=== PATIENT | female | born 1955 | race Caucasian/White ===

== ENCOUNTER → 2020-01-01 14:19 | Outpatient (CLI) | payer OTHER, SELFPAY ==
--- NOTE | ~2020-01-01 | CT_ITS ---
EXAMINATION: CT brain wo con DATE: 01/01/2020 14:35 INDICATION: Status post fall. Facial pain and nausea. TECHNIQUE: Computed tomography (CT) of the head was performed without intravenous contrast. The dose- length product was 599.57 mGy-cm. Automated exposure control and iterative reconstruction technique w ere employed. COMPARISON: None FINDINGS: Brain parenchymal volume is normal for age. There is a small hyperdensity at the interhemis pheric fissure anteriorly, suspicious for small subdural hemorrhage. This measures approximately 5 x 2 mm greatest axial dimension. No ventriculomegaly or midline shift. Basilar cisterns are patent. No significant mass effect. There are scattered mild periventricular and subcortical white matter change s, most likely related to small vessel ischemic disease (microangiopathy). Paranasal sinuses and mast oids are pneumatized. No depressed skull fractures. IMPRESSION: 1. Small focal hyperdensity in the left frontal region along the interhemispheric fissure, suspicious for subdural hemorrhage. No significant mass effect. Reviewed, dictated and finalized at location A. IMPRESSION: 1. Small focal hyperdensity in the left frontal region along the interhemispher ic fissure, suspicious for subdural hemorrhage. No significant mass effect.
== END ==
PROVIDERS: PCP Registered Nurse; Visit Provider Registered Nurse
DX: H57.11 Ocular pain, right eye (principal); R51 Headache; R11.0 Nausea; W19.XXXA Unspecified fall, initial encounter; R93.89 Abnormal findings on diagnostic imaging of other specified body structures
CPT/HCPCS: 70450

== ENCOUNTER → 2020-01-02 12:49 | Outpatient (CLI) | payer OTHER, SELFPAY ==
--- NOTE | ~2020-01-02 | CT_ITS ---
EXAMINATION: CT cervical spine wo [facility] EXAM DATE: 01/02/2020 13:17 INDICATION: Recent fall, head injury. TECHNIQUE: Spiral CT of the cervical spine was performed without contrast. Axial images were reviewe d. Coronal and sagittal reformatted images were also reviewed. The dose-length product (DLP) for thi s examination was 246.95 mGy-cm. The exposure was tailored according to patient size (auto mA exposu re control), and iterative reconstruction (ASIR) was used as additional dose reduction technique. ere is no prior study for comparison. FINDINGS: Overall mild to moderate cervical arthropathy and disc disease, no significant central river l or neural foraminal stenosis. There is no evidence of acute cervical fracture. The odontoid proces s is intact. Pre-dens space is normal. Prevertebral soft tissue is normal. There are no soft tissu e abnormalities identified. There is no disc space widening or traumatic vertebral body subluxation suspected. A detailed level by level evaluation of spondylosis can be added as addendum if request ed. IMPRESSION: 1. No acute cervical fracture. 2. Mild to moderate cervical spondylosis. Reviewed, dictated and finalized at location A.
== END ==
PROVIDERS: PCP Registered Nurse; Visit Provider Registered Nurse
DX: R51 Headache (principal); R11.0 Nausea; M47.892 Other spondylosis, cervical region
CPT/HCPCS: 72125

== ENCOUNTER 2020-08-13 10:07 | Outpatient (CLI) | payer OTHER, SELFPAY ==
--- NOTE | ~2020-08-13 | MM_ITS ---
EXAMINATION: MM screening mark anthony BI w wyatt HISTORY: Screening mammogram TECHNIQUE: Craniocaudal and mediolateral oblique 3-D tomosynthesis images were obtained and synthetic 2-D images were generated. CAD analysis was submitted and interpreted. COMPARISON: 07/06/2019, 07/09/2018 bilateral digital screening mammogram examinations BREAST PARENCHYMAL COMPOSITION: The breasts are almost entirely fatty. FINDINGS: There is no evidence of suspicious mass, calcification, or architectural distortion to sugg est malignancy in either breast. There has been no suspicious interval change. IMPRESSION: 1. No mammographic evidence of malignancy. 2. Recommend routine screening mammography in one year. BI-RADS Category 1: Negative Reviewed, dictated and finalized at location A. 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
== END 2020-08-13 10:08 | disposition home or self-care (01) ==
LOC: ANHIMG 10:09
PROVIDERS: PCP Registered Nurse; Visit Provider Registered Nurse
DX: Z12.31 Encounter for screening mammogram for malignant neoplasm of breast (principal)
CPT/HCPCS: 77063; 77067

== ENCOUNTER 2020-10-03 09:53 | Outpatient (CLI) | payer OTHER, SELFPAY ==
--- NOTE | ~2020-10-03 | DEXA_ITS ---
Bone Density Report Name: Juliette Patterson Age: 64 Sex: Female Ethnicity: White Date of : 1955 Indication: osteopenia; height loss; prior fracture; hysterectomy; Referring Provider: Regla, Dian Study: Bone densitometry was performed. Exam Date: October 03, 2020 Accession number: [id number] Bone Density: Region BMD T-score Z-score Classification AP Spine (L1-L4) 0.901 -1.3 0.6 Osteopenia Femoral Neck (Left) 0.678 -1.5 0.1 Osteopenia Total Hip (Left) 0.828 -0.9 0.4 Normal Total Hip Bilateral Avg 0.841 -0.8 0.5 Normal Femoral Neck (Right) 0.671 -1.6 0.0 Osteopenia Total Hip (Right) 0.854 -0.7 0.6 Normal World Health Organization criteria for BMD impression classify patients as: Normal (T-score at or above -1.0), Osteopenia (T-score between -1.0 and -2.5), or Osteoporosis (T-score at or below -2.5). 10-year Fracture Risk(1): Major Osteoporotic Fracture 16% Hip Fracture 2.0% Reported Risk Factors: [place] (), Neck BMD=0.671, BMI=27.1, previous fracture (1) FRAX(R) Version 3.08. Fracture probability calculated for an untreated patient. Fracture probability may be lower if the patient has received treatment. Previous Exams: Region Exam Age BMD T-score BMD Change BMD Change Date g/cm2 vs Baseline vs Previous AP Spine(L1-L4) 10/03/2020 64 0.901 -1.3 -0.137(-13.2%) 0.016(1.9%)# 06/22/2018 62 0.884 -1.5 -0.154(-14.8%) 0.025(2.9%)* 06/02/2016 60 0.860 -1.7 -0.178(-17.2%) -0.008(-0.9%)# 04/17/2014 58 0.868 -1.6 -0.171(-16.4%) 0.011(1.3%) 03/25/2012 56 0.857 -1.7 -0.181(-17.5%) -0.068(-7.3%)# 01/16/2010 54 0.925 -1.1 -0.113(-10.9%) -0.008(-0.9%) 12/15/2007 52 0.933 -1.0 -0.105(-10.1%) 0.039(4.4%)* 11/27/2006 51 0.894 -1.4 -0.144(-13.9%) -0.144(-13.9%) 06/11/2003 47 1.038 -0.1 Total Hip(Left) 10/03/2020 64 0.828 -0.9 -0.111(-11.8%) 0.008(0.9%)# 06/22/2018 62 0.821 -1.0 -0.118(-12.6%) -0.037(-4.3%)* 06/02/2016 60 0.858 -0.7 -0.081(-8.6%)# 0.007(0.9%)# 04/17/2014 58 0.851 -0.7 -0.088(-9.4%)# -0.033(-3.8%)* 03/25/2012 56 0.884 -0.5 -0.055(-5.8%)# 0.022(2.6%)# 01/16/2010 54 0.862 -0.7 -0.077(-8.2%)* -0.034(-3.8%)* 12/15/2007 52 0.896 -0.4 -0.043(-4.6%)* 0.009(1.1%) 11/27/2006 51 0.887 -0.5 -0.052(-5.6%)* -0.052(-5.6%)* 06/11/2003 47 0.939 0.0 Total Hip(Right) 10/03/2020 64 0.854 -0.7 -0.133(-13.4%) 0.001(0.1%)# 06/22/2018 62 0.853 -0.7 -0.134(-13.5%) 0.004(0.5%) 06/02/2016 60 0.849 -0.8 -0.138(-14.0%) 0.051(6.3%)# 04/17/2014 58 0.798 -1.2 -0.189(-19.1%) -0.005(-0.6%)
== END 2020-10-03 09:54 | disposition home or self-care (01) ==
PROVIDERS: PCP Registered Nurse; Visit Provider Registered Nurse
DX: M85.88 Other specified disorders of bone density and structure, other site (principal); M85.852 Other specified disorders of bone density and structure, left thigh; M85.851 Other specified disorders of bone density and structure, right thigh
CPT/HCPCS: 77080

== ENCOUNTER 2021-11-27 09:06 | Outpatient (CLI) | payer OTHER, SELFPAY ==
--- NOTE | ~2021-11-27 | MM_ITS ---
EXAMINATION: MM screening mark anthony BI w wyatt HISTORY: Screening TECHNIQUE: Craniocaudal and mediolateral oblique 3-D tomosynthesis images were obtained and synthetic 2-D images were generated. CAD analysis was submitted and interpreted. COMPARISON: Comparison to multiple prior studies sequentially, with oldest reviewed study dated 05/03. BREAST PARENCHYMAL COMPOSITION: There are scattered areas of fibroglandular density. FINDINGS: There is no evidence of suspicious mass, calcification, or architectural distortion to sugg est malignancy in either breast. There has been no suspicious interval change. IMPRESSION: 1. No mammographic evidence of malignancy. 2. Recommend routine screening mammography in one year. BI-RADS Category 1: Negative Reviewed, dictated and finalized at location A. CHER
== END 2021-11-27 09:07 | disposition home or self-care (01) ==
LOC: ANHIMG 09:07
PROVIDERS: PCP Registered Nurse; Visit Provider Registered Nurse
DX: Z12.31 Encounter for screening mammogram for malignant neoplasm of breast (principal)
CPT/HCPCS: 77063; 77067

== ENCOUNTER 2022-12-01 08:47 | Outpatient (CLI) | payer OTHER, SELFPAY ==
--- NOTE | ~2022-12-01 | MM_ITS ---
EXAMINATION: MM screening mark anthony BI w wyatt HISTORY: Screening mammogram TECHNIQUE: Craniocaudal and mediolateral oblique 3-D tomosynthesis images were obtained and synthetic 2-D images were generated. CAD analysis was submitted and interpreted. COMPARISON: 11/27/2021, 08/09/2020, 07/06/2019 bilateral screening mammogram examinations BREAST PARENCHYMAL COMPOSITION: There are scattered areas of fibroglandular density. FINDINGS: There is no evidence of suspicious mass, calcification, or architectural distortion to sugg est malignancy in either breast. There has been no suspicious interval change. IMPRESSION: 1. No mammographic evidence of malignancy. 2. Recommend routine screening mammography in one year. BI-RADS Category 1: Negative Reviewed, dictated and finalized at location A.
--- NOTE | ~2022-12-01 | DEXA_ITS ---
Bone Density Report Name: LUKE KIM Age: 67 Sex: Female Ethnicity: White Date of : 1955 Indication: osteopenia; height loss; hysterectomy; postmenopausal Referring Provider: APURVA, RASHID Study: Bone densitometry was performed. Exam Date: December 01, 2022 Accession number: [id number] Bone Density: Region BMD T-score Z-score Classification AP Spine(L1-L4) 0.805 -2.2 -0.2 Osteopenia Femoral Neck (Left) 0.643 -1.9 -0.1 Osteopenia Total Hip (Left) 0.778 -1.3 0.1 Osteopenia Femoral Neck (Right) 0.649 -1.8 -0.1 Osteopenia Total Hip (Right) 0.800 -1.2 0.3 Osteopenia Total Hip Mean 0.789 -1.3 0.2 Osteopenia World Health Organization criteria for BMD impression classify patients as: Normal (T-score at or above -1.0), Osteopenia (T-score between -1.0 and -2.5), or Osteoporosis (T-score at or below -2.5). 10-year Fracture Risk(1): Major Osteoporotic Fracture 10% Hip Fracture 1.8% Reported Risk Factors: [place] (), Neck BMD=0.643, BMI=22.9 (1) FRAX(R) Version 3.08. Fracture probability calculated for an untreated patient. Fracture probability may be lower if the patient has received treatment. Previous Exams: Region Exam Age BMD T-score BMD Change BMD Change Date g/cm2 vs Baseline vs Previous AP Spine (L1-L4) 12/01/2022 67 0.805 -2.2 -0.052 (-6.1%) -0.096 (-10.7% 10/03/2020 64 0.901 -1.3 0.044 (5.2%)* 0.016 (1.9%)# 06/22/2018 62 0.884 -1.5 0.028 (3.2%)# 0.025 (2.9%)* 06/02/2016 60 0.860 -1.7 0.003 (0.3%)# 0.003 (0.3%)# 03/25/2012 56 0.857 -1.7 Total Hip(Left) 12/01/2022 67 0.778 -1.3 -0.106 (-11.9% -0.050 (-6.0%) 10/03/2020 64 0.828 -0.9 -0.056 (-6.3%) 0.008 (0.9%)# 06/22/2018 62 0.821 -1.0 -0.063 (-7.2%) -0.037 (-4.3%) 06/02/2016 60 0.858 -0.7 -0.026 (-2.9%) -0.026 (-2.9%) 03/25/2012 56 0.884 -0.5 Total Hip(Right) 12/01/2022 67 0.800 -1.2 -0.003 (-0.4%) -0.054 (-6.3%) 10/03/2020 64 0.854 -0.7 0.051 (6.4%)* 0.001 (0.1%)06/22/2018 62 0.853 -0.7 0.050 (6.2%)# 0.004 (0.5%) 06/02/2016 60 0.849 -0.8 0.046 (5.7%)# 0.046 (5.7%)# 03/25/2012 56 0.803 -1.1 *Denotes significance at 95% confidence level, LSC for AP Spine = 0.022 g/cm2, LSC for Total Hip = 0.027 g/cm2 # Denotes dissimilar scan types or analysis methods Clinical Information Provided by Patient: Has used the following medications: Vitamin D, Calcium Has the following medical conditions: Hysterectomy
== END 2022-12-01 08:48 | disposition home or self-care (01) ==
PROVIDERS: PCP Registered Nurse; Visit Provider Registered Nurse
DX: Z12.31 Encounter for screening mammogram for malignant neoplasm of breast (principal); Z78.0 Asymptomatic menopausal state; M85.89 Other specified disorders of bone density and structure, multiple sites
CPT/HCPCS: 77063; 77067; 77080

== ENCOUNTER 2023-12-03 08:58 | Outpatient (CLI) | payer OTHER, SELFPAY ==
--- NOTE | ~2023-12-03 | MM_ITS ---
EXAMINATION: MM screening mark anthony BI w wyatt HISTORY: Screening mammogram TECHNIQUE: Craniocaudal and mediolateral oblique 3-D tomosynthesis images were obtained and synthetic 2-D images were generated. CAD analysis was submitted and interpreted. COMPARISON: 12/01/2022, 11/27/2021 bilateral screening mammogram examinations BREAST PARENCHYMAL COMPOSITION: There are scattered areas of fibroglandular density. FINDINGS: There is no evidence of suspicious mass, calcification, or architectural distortion to sugg est malignancy in either breast. There has been no suspicious interval change. IMPRESSION: 1. No mammographic evidence of malignancy. 2. Recommend routine screening mammography in one year. BI-RADS Category 1: Negative Reviewed, dictated and finalized at location A.
== END 2023-12-03 08:59 | disposition home or self-care (01) ==
LOC: ANHIMG 09:00
PROVIDERS: PCP Registered Nurse; Visit Provider Registered Nurse
DX: Z12.31 Encounter for screening mammogram for malignant neoplasm of breast (principal)
CPT/HCPCS: 77063; 77067

== ENCOUNTER 2024-12-04 08:37 | Outpatient (CLI) | payer OTHER, SELFPAY ==
--- NOTE | ~2024-12-04 | MM_ITS ---
EXAMINATION: MM screening mark anthony BI w wyatt HISTORY: Screening TECHNIQUE: Craniocaudal and mediolateral oblique 3-D tomosynthesis images were obtained and synthetic 2-D images were generated. CAD analysis was submitted and interpreted. COMPARISON: Comparison to multiple prior studies sequentially, with oldest reviewed study dated 11/2017. BREAST PARENCHYMAL COMPOSITION: Not dense: There are scattered areas of fibroglandular density. FINDINGS: There is no evidence of suspicious mass, calcification, or architectural distortion to sugg est malignancy in either breast. There has been no suspicious interval change. IMPRESSION: 1. No mammographic evidence of malignancy. 2. Recommend routine screening mammography in one year. BI-RADS Category 1: Negative Reviewed, dictated and finalized at location B.
--- NOTE | ~2024-12-04 | DEXA_ITS ---
Bone Density Report Name: LUKE KIM Age: 69 Sex: Female Ethnicity: White Date of : 1955 Indication: osteopenia; height loss; hysterectomy; Referring Provider: APURVA, RASHID Study: Bone densitometry was performed. Exam Date: December 04, 2024 Accession number: [id number] Bone Density: Region BMD T-score Z-score Classification AP Spine(L1-L4) 0.812 -2.1 0.0 Osteopenia Femoral Neck (Left) 0.675 -1.6 0.3 Osteopenia Total Hip (Left) 0.778 -1.3 0.2 Osteopenia Femoral Neck (Right) 0.631 -2.0 -0.1 Osteopenia Total Hip (Right) 0.738 -1.7 -0.1 Osteopenia Total Hip Mean 0.758 -1.5 0.1 Osteopenia World Health Organization criteria for BMD impression classify patients as: Normal (T-score at or above -1.0), Osteopenia (T-score between -1.0 and -2.5), or Osteoporosis (T-score at or below -2.5). 10-year Fracture Risk(1): Major Osteoporotic Fracture 11% Hip Fracture 2.3% Reported Risk Factors: [place] (), Neck BMD=0.631, BMI=22.5 (1) FRAX(R) Version 3.08. Fracture probability calculated for an untreated patient. Fracture probability may be lower if the patient has received treatment. Previous Exams: Region Exam Age BMD T-score BMD Change BMD Change Date g/cm2 vs Baseline vs Previous AP Spine (L1-L4) 12/04/2024 69 0.812 -2.1 -0.045 (-5.2%) 0.007 (0.9%) 12/01/2022 67 0.805 -2.2 -0.052 (-6.1%) -0.096 (-10.7% 10/03/2020 64 0.901 -1.3 0.044 (5.2%)* 0.016 (1.9%)# 06/22/2018 62 0.884 -1.5 0.028 (3.2%)# 0.025 (2.9%)* 06/02/2016 60 0.860 -1.7 0.003 (0.3%)# 0.003 (0.3%)# 03/25/2012 56 0.857 -1.7 Total Hip(Left) 12/04/2024 69 0.778 -1.3 -0.106 (-12.0% 0.000 (0.0%) 12/01/2022 67 0.778 -1.3 -0.106 (-11.9% -0.050 (-6.0%) 10/03/2020 64 0.828 -0.9 -0.056 (-6.3%) 0.008 (0.9%)# 06/22/2018 62 0.821 -1.0 -0.063 (-7.2%) -0.037 (-4.3%) 06/02/2016 60 0.858 -0.7 -0.026 (-2.9%) -0.026 (-2.9%) 03/25/2012 56 0.884 -0.5 Total Hip(Right) 12/04/2024 69 0.738 -1.7 -0.066 (-8.2%) -0.063 (-7.8%) 12/01/2022 67 0.800 -1.2 -0.003 (-0.4%) -0.054 (-6.3%) 10/03/2020 64 0.854 -0.7 0.051 (6.4%)* 0.001 (0.1%)# 06/22/2018 62 0.853 -0.7 0.050 (6.2%)# 0.004 (0.5%) 06/02/2016 60 0.849 -0.8 0.046 (5.7%)# 0.046 (5.7%)# 03/25/2012 56 0.803 -1.1 *Denotes significance at 95% confidence level, LSC for AP Spine = 0.022 g/cm2, LSC for Total Hip = 0.027 g/cm2 # Denotes dissimilar scan types or analysis methods Clinical Information Provided by Patient: Has used the following medications: Vitamin D, Calcium Has the following medical conditions: Hysterectomy Patient maximum height was 68 Menopause Age: 48 No regular weight bearing exercise Drinks caffeinated beverages Onset of menses at age 13 Number of children 0 Impression: The patient has low bone mass, based on the Total Spine T-score. The patient has an estimated ten-year risk of hip fracture of 2.3% and an estimated ten-year risk of major fracture of 11%, based on the WHO FRAX algorithm. The BMD for the Total Hip(Right) decreased, changing by -7.8% since the last DXA exam. Discussion: BONE DENSITY IS LOW AT ONE OR MORE SKELETAL SITES. This patient's lowest T-score is low at one or more skeletal sites. It meets the World Health Organization's (WHO) criteria for ?low bone mass? (T-score between -1.0 and -2.5). The patient's 10-year risk of fracture as calculated by FRAX is less than the threshold where pharmacological therapy is recommended by the National Osteoporosis Foundation (NOF). However, all treatment decisions require clinical judgment and consideration of individual patient factors, including patient preferences, comorbidities, previous drug use, risk factors not captured in the FRAX model (e.g., frailty, falls, vitamin D deficiency, increased bone turnover, interval significant decline in bone density) and possible under or overestimation of fracture risk by FRAX. The patient should follow a healthful lifestyle (good nutrition with adequate calcium and vitamin D, and appropriate weight-bearing exercise). Follow-Up: Consider repeating this study in 2 years to reassess this patient's status, or sooner if there is some new clinical indication. Reported by: JUAN MANUEL on 12/04/2024 9:10:00 AM. Reviewed, dictated and finalized at location A.
--- OUTSIDE RECORDS SUMMARY | 2024-12-04 09:01 | XMS_ITS | Referral Summary ---
Author Organization [facility] Address [address] [place] [phone] Care Team Providers Care Brass [employer] Instruments Tube Bender Name Role Phone Dian Arauz Primary Care Provider + Christian Oliveros DO Unavailable Encounters Date Type Department Care Team Description 11/29/2024 11:35 AM CDT - 11/29/2024 11:59 PM CDT Hospital Encounter [facility] Diag Imaging [facility] [place] [address] Numbness in feet; Lumbar radiculopathy; Spinal stenosis of lumbar region without neurogenic claudication Discharge Disposition: Discharge to home or self care 11/29/2024 11:00 AM CDT Office Visit [facility] [address] [place] [address] [address], [address] [place] [address] Fernando Nieto PA Lumbar radiculopathy (Primary Dx); Numbness in feet; Spinal stenosis of lumbar region without neurogenic claudication from Last 3 Months Allergies No known active allergies Medications naproxen (ALEVE) 220 mg tablet Take 1 tablet (220 mg total) by mouth 2 (two) times a day with meals Active Active Problems Problem Noted Date Diagnosed Date Lumbar radiculopathy 11/29/2024 Social History Tobacco Use Types Packs/Day Years Used Date Smoking Tobacco: Never Assessed Comments Unknown Sex and Gender Information Value Date Recorded Sex Assigned at Not on file 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 Gender Identity Not on file Sexual Orientation Not on file Last Filed Vital Signs Vital Sign Reading Time Taken Comments Blood Pressure 176/83 11/29/2024 10:46 AM CDT Pulse 62 11/29/2024 10:46 AM CDT Temperature - - Respiratory Rate 18 11/29/2024 10:46 AM CDT Oxygen Saturation 98% 11/29/2024 10:46 AM CDT Inhaled Oxygen Concentration - - Weight 65.8 kg (145 lb) 11/29/2024 10:46 AM CDT Height 172.2 cm (5' 7.8 ) 11/29/2024 10:46 AM CD T Body Mass Index 22.18 11/29/2024 10:46 AM CDT Plan of Treatment Not on file Procedures Procedure Name Priority Date/Time Associated Diagnosis Comments XR LUMBAR SPINE AP LAT FLEX EX Schedule Routine, Read Routine (OP Routine) 11/29/2024 11:51 AM CDT Numbness in feet Lumbar radiculopathy Spinal stenosis of lumbar region without neurogenic claudication XR SCOLIOSIS AP LAT Schedule Routine, Read Routine (OP Routine) 11/29/2024 11:51 AM CDT Numbness in feet Lumbar radiculopathy Spinal stenosis of lumbar region without neurogenic claudication from Last 3 Months Results * XR Spine Lumbar Ap Lat Flex Ext min 4 Views (11/29/2024 11:51 AM CDT) Anatomical Region Laterality Modality L-spine N/A Computed Radiogr aphy 12/02/2024 10:4 5 PM CDT Narrative 12/02/2024 10:52 PM CDT EXAM DESCRIPTION: XR SPINE LUMBAR AP LAT FLEX EXT MIN 4 VIEWS REASON FOR STUDY: lumbar pain Pt sts: lower back pain X years, denies injury, denies surgery TECHNIQUE: Four views radiographic view(s) of the lumbar spine spine. COMPARISON: No comparison. FINDINGS: ALIGNMENT: There is anterolisthesis of L4 on L5 due to facet arthritis. Anterolisthesis is stable with flexion and neutral positioning and slightly reduced with extension. VERTEBRAE: Vertebral bodies of normal height. Mild hypertrophic endplate spurring at L3-4. DISCS: Disc space narrowing at L4-5 and L5-S1. SOFT TISSUES: Within normal limits. IMPRESSION: Degenerative anterolisthesis of L4 on L5 with mild reduction with extension. Disc degeneration at L4-5 and L5-S1. THIS IS AN ELECTRONICALLY VERIFIED FINAL REPORT 12/02/2024 10:52 PM - Electronically signed by Pedro CLARK T: Report ID: [id number] Reading Location: [id number] Procedure Note Maria D Friedman MD - 12/02/2024 EXAM DESCRIPTION: XR SPINE LUMBAR AP LAT FLEX EXT MIN 4 VIEWS REASON FOR STUDY: lumbar pain Pt sts: lower back pain X years, denies injury, denies surgery TECHNIQUE: Four views radiographic view(s) of the lumbar spine spine. COMPARISON: No comparison. FINDINGS: ALIGNMENT: There is anterolisthesis of L4 on L5 due to facet arthritis. Anterolisthesis is stable with flexion and neutral positioningand slightly reduced with extension. VERTEBRAE: Vertebral bodies of normal height. Mild hypertrophic endplate spurring at L3-4. DISCS: Disc space narrowing at L4-5 and L5-S1. SOFT TISSUES: Within normal limits. IMPRESSION: Degenerative anterolisthesis of L4 on L5 with mild reductionwith extension. Disc degeneration at L4-5 and L5-S1. THIS IS AN ELECTRONICALLY VERIFIED FINAL REPORT 12/02/2024 10:52 PM - Electronically signed by Pedro Friedman M.D. T: Report ID: [id number] Reading Location: [id number] us Fernando CORDERO IMG XR PROCEDURES Final Re sult * XR Scoliosis 2 or 3 Views (11/29/2024 11:51 AM CDT) Anatomical Region Laterality Modality Spine N/A Computed Radiogr aphy 12/02/2024 10:5 2 PM CDT Narrative 12/02/2024 11:11 PM CDT EXAM DESCRIPTION: XR SCOLIOSIS AP AND LATERAL REASON FOR STUDY: lumbar pain Pt sts: lower back pain X years, denies injury, denies surgery TECHNIQUE: Standing AP and lateral exam of the thoracolumbar spine. COMPARISON: No comparison. FINDINGS: Slight loss of height along the superior endplate of T12. Vertebral height otherwise maintained. There is a very slight levocurvature of the thoracic spine estimated roughly at 10 degrees with apex at T7. Lumbar lordosis is estimated at roughly 55 degrees. IMPRESSION: Slight loss of height along the superior endplate of T12. Mild levocurvature of the thoracic spine. No vertebral abnormality. THIS IS AN ELECTRONICALLY VERIFIED FINAL REPORT 12/02/2024 11:11 PM - Electronically signed by Pedro CLARK T: Report ID: [id number] Reading Location: [id number] Procedure Note Maria D Friedman MD - 12/02/2024 EXAM DESCRIPTION: XR SCOLIOSIS AP AND LATERAL REASON FOR STUDY: lumbar pain Pt sts: lower back pain X years, denies injury, denies surgery TECHNIQUE: Standing AP and lateral exam of the thoracolumbar spine. COMPARISON: No comparison. FINDINGS: Slight loss of height along the superior endplate of T12. Vertebralheight otherwise maintained. There is a very slight levocurvature of thethoracic spine estimated roughly at 10 degrees with apex at T7. Lumbar lordosis is estimated at roughly 55 degrees. IMPRESSION: Slight loss of height along the superior endplate of T12. Mild levocurvature of the thoracic spine. No vertebral abnormality. THIS IS AN ELECTRONICALLY VERIFIED FINAL REPORT 12/02/2024 11:11 PM - Electronically signed by Pedro CLARK T: Report ID: [id number] Reading Location: [id number] Fernando CORDERO IMG XR PROCEDURES Final Re sult from Last 3 Months Insurance [facility] Member Subscriber Plan / Payer (Ef fective 2018-Present) Name:Juliette Patterson Relation to Subscriber:Self Name:Juliette Patterson Payer ID:[id number] (NAIC) Type:MEDICARE RISK OTHER Address: [place] [id number] Care Teams Br[employer] Tube Bender Relationship Specialty Start Date End Date Dian Arauz PA [address] [place] [id number] PCP - General Nurse Practitioner 11/29/24 Christian Oliveros DO [address] [place] [phone] Referring Physician Family Medicine 11/29/24
--- OUTSIDE RECORDS SUMMARY | 2024-12-04 09:01 | XMS_ITS | Encounter Summary ---
Author Organization [facility] Address [address] [place] [id number] Care Team Providers Care Commodity Loan Clerk Name Role Phone Dian Arauz Primary Care Provider [phone] Encounter Details Date Type Department Care Team (Late Contact Info) Description 12/20/2020 ChargeBee Message Enc [facility] Family Medicine [facility] [address], [address] [place] [phone] Jomar, [facility] Provider RE:Schedule Appointment - Annual Physical Social History Tobacco Use Types Packs/Day Years Used Date Smoking Tobacco: Never Smokeless Tobacco: Never Alcohol Use Standard Drinks/Week Comments No 0 (1 standard drink = 0.6 oz pur e alcohol) AUDIT-C Answer Date Recorded Frequency of Alcohol Consumption Never 06/21/2019 Average Number of Drinks Not on file 019 Frequency of Binge Drinking Not on file 10/2018 PHQ-2 Answer Date Recorded PHQ-2 Score - If the patient scores above 3, please move on to questions 3-9 0 04/17/2020 Comments No Sex and Gender Information Value Date Recorded Sex Assigned at Female 10/24/2024 10:59 AM 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 Legal Sex Female 9:40 PM CDT Gender Identity Not on file Sexual Orientation Not on file documented as of this encounter Plan of Treatment Upcoming Encounters Date Type Department Care Team (Latest Contact Info) Description 12/08/2024 8:40 AM CDT Office Visit [facility] Family & Internal Medicine [address] [phone] Dian Arauz, RONNIE [address] [place] [address] 01/03/2025 9:40 AM CDT Hospital Encounter [facility] [place] [address] [id number] Roseline Ross MD [address] [facility] [address] [place] [address] 01/03/2025 9:40 AM CDT - 01/03/2025 10:00 AM CDT Surgery [facility] [place]ventional [place] [address] [id number] Roseline Ross MD [address] [facility] [address] [place] [address] INJECTION FACET JOINT L4-5 02/15/2025 10:20 AM CDT [facility] [address], [address] [place] [phone] Vickie Buck APRN [address] [facility] [address] [place] [address] 04/24/2025 10:00 AM CDT [facility] [address], [address] [place] [phone] Elroy Shaikh MD [address] [place] [address] Scheduled Procedures Name Priority Associated Diagnoses Date/Ti me INJECTION FACET JOINT Lumbar spondylosis 01/03/2025 9:40 AM CDT documented as of this encounter Visit Diagnoses Not on filedocumented in this encounter Additional Health Concerns Assessment Noted Time PHQ-9 Depression Total Score: 0 06/21/20 19 10:05 AM CDT documented as of this encounter Care Teams Commodity Loan Clerk Relationship Specialty Start Date End Date Dian Arauz APNP [address] [place] [id number] PCP - General NURSE PRACTITIONER 08/29/18 documented as of this encounter
--- OUTSIDE RECORDS SUMMARY | 2024-12-04 09:01 | XMS_ITS | Clinical Summary ---
Author Organization [facility] Address [address] [place] [address] Care Team Providers Care Machine Tracer Name Role Phone Dian Arauz Primary Care Provider [phone] Allergies Active Allergy Reactions Criticality Noted Date Comments Seasonal Eyes Water & Itch 12/27/2020 Medications Clobetasol Propionate Emulsion 0.05 % Foam Apply 1 Application topically as needed (eczema, in winter months). 2 08/03/20 18 Active fluticasone propionate 50 MCG/ACT nasal spray 1 spray by Nasal route daily as needed for Allergies (allergy season). Active multivitamin tablet Take 1 tablet by mouth daily. Active loratadine 10 MG tablet Take 1 tablet (10 mg total) by mouth daily. Active Naproxen Sodium 220 MG Cap Take by mouth as needed. Active ketoconazole (NIZORAL) 2 % shampoo WASH SCALP TWICE A WEEK 01/03/20 23 Active Vitamin B12 100 MCG tablet Take 0.5 tablets (50 mcg total) by mouth daily. Active magnesium oxide (MAG-OX) 250 MG tablet Take 1 tablet (250 mg total) by mouth 2 (two) times daily. Active diazePAM (VALIUM) 5 MG tablet TAKE 3 TABLETS BY MOUTH 1 HOUR PRIOR TO PROCEDURE, THEN TAKE 1 TABLET EVERY 6 HOURS NEEDED 10/19/19 25 Active albuterol sulfate HFA (PROAIR HFA) 108 (90 Base) MCG/ACT inhalerIndicat ions:COVID-19, Wheezing Inhale 2 puffs into the lungs every 6 (six) hours as needed for Wheezing. 18 g 1 11/28/19 25 Active triamcinolone acetonide (NASACORT) 55 MCG/ACT nasal inhaler 2 sprays by Each Nostril route daily. 025 Discontinu ed(Therapy completed) benzonatate (TESSALON) 100 MG capsuleIndicat ions:COVID-19 Take 1-2 capsules (100-200 mg total) by mouth 3 (three) times daily as needed for Cough. 40 capsule 11/23/19 25 025 albuterol sulfate HFA 108 (90 Base) MCG/ACT inhalerIndicat ions:COVID-19 Inhale 2 puffs into the lungs every 6 (six) hours as needed for Wheezing. 18 g 11/23/19 25 025 Discontinu ed(Insuran ce denial) nirmatrelvir & ritonavir 300/100 (PAXLOVID) 20 x 150 MG & 10 x 100MG tablet packIndication s:COVID-19 Take TWO nirmatrelvir 150 mg tablets along with ONE ritonavir 100 mg tablet, with all three tablets taken together, twice daily for 5 days. May take with or without food. Swallow tablets whole. Do not chew, break or crush. 30 each 11/23/19 25 025 Active Problems Problem Noted Date Diagnosed Date Spondylolisthesis of lumbar region 10/19/2024 Spinal stenosis of lumbar re gion without neurogenic claudication 10/19/2024 Facet hypertrophy of lumbar region 10/19/2024 Foraminal stenosis of lumbar region 10/19/2024 Degeneration of intervertebr al disc of lumbar region with discogenic back pain and lower extremity pain 10/19/2024 Lumbar radiculopathy 03/06/2021 Osteopenia 08/23/2020 History of skin cancer 06/24/2020 Low back pain potentially associated with radicu lopathy 06/24/2020 Diverticulosis 07/15/2019 Seasonal allergies 04/21/2018 Resolved Problems Problem Noted Date Diagnosed Date Resolved Date Cataract 11/02/2023 11/02/2023 Overview (11/02/2023): left eye Immunization due 06/24/2018 05/31/2020 Screening for lipoid disorders 04/21/2018 05/31/2020 Screening for endocrine, met abolic and immunity disorder 04/21/2018 05/31/2020 Encounters Date Type Department Care Team Description 12/01/2024 Telephone [facility] Family & Internal [address] [phone] Dian Arauz APNP Other 11/27/2024 Telephone [facility] Internal [address] [phone] Dian Arauz APNP Medication Problem 11/23/2024 Scan [employer] INFO SRVCS Scanned, [facility] 11/22/2024 10:40 AM COUNSELLORS Telemedicine [facility] Family Internal [address] [phone] Christian Oliveros, DO COVID-19 ( Pt prefers Virtual Link be sent to her email address. Pt tested positive for COVID yesterday. Her primary complaint is a very deep cough.) 11/22/2024 Travel 11/22/2024 MyChart Message Enc [facility] Family & Internal [address] [phone] Dian Arauz APNP COVID positive-chest cough 11/16/2024 MyChart Message [employer] [facility] Internal [address] [phone] Dian Arauz APNP Order for annual mamm and semi-annual bone density on December 04 11/01/2024 MyChart Message Enc [facility] Family & Internal [address] [phone] Dian Arauz APNP Referral to Dr. Christo Zhao neurosurgeon at [facility] 10/31/2024 Telephone [facility] - [facility] [address], [address] [place] [phone] Elroy Shaikh MD Results 10/25/2024 MyChart Message Enc [facility] Internal [address] [phone] Dian Arauz APNP Referral to [facility] for Dr. Sneha Kuhn, customer sales specialist on Nov 02 10/24/2024 11:04 AM COUNSELLORS - 10/24/2024 11:59 PM COUNSELLORS Hospital Encounter [facility] [place] [address] Elroy Shaikh MD Discharge Disposition: Home or Self Care (Routine Discharge) 10/24/2024 10:00 AM COUNSELLORS [facility] [address], [address] [place] [address] Elroy Shaikh MD New Patient (Emg follow up) 10/24/2024 Travel 10/19/2024 11:00 AM COUNSELLORS [facility] Visit [facility] [address], [address] [place] [phone] Vickie Buck APRN New Patient (Lumbar Spine ) 10/19/2024 MyChart Message Enc [facility] [place] [address] [id number] Jomar [facility] Provider [facility] 10/19/2024 Travel 10/18/2024 Scan [facility] INFO SRVCS Scanned, [facility] 10/17/2024 Scan [facility] INFO SRVCS Scanned, [facility] 09/22/2024 MyChart Message Enc [facility] & Internal [address] [phone] Dian Arauz APNP Referral to Dr. R[facility] to [facility] 09/22/2024 MyChart Message Enc [facility] Family & Internal [address] [phone] Dian Arauz, TREVONNP Referral to Dr. Shaikh to essence from Last 3 Months Immunizations Name Administration Dates Next Due Fluzone 6 Months+ Quad (0.5 mL Prefilled Syringe) 06/21/2019 Fluzone High Dose (IIV, triv alent, 0.5mL) 07/04/2024 Fluzone High Dose - >Age 65 (Prefilled Syringe) 06/24/2020 Influenza Adult (Generic) 06/17/2023,11/2021,06/23/2021,2017,07/12/2015,07/12/2014 Pneumococcal (Pneumovax 23) 06/24/2020 Pneumococcal (Prevnar 20) 08/03/2023 Tdap (Boostrix) 09/16/2014 Tdap (Generic) 06/29/2023,07/12/2014 Zoster (Zostavax) [address] Unt/0.65Ml 06/06/2014 Family History Medical History Relation Comments LOW BACK PAIN Brother LOW BACK PAIN AND SURGERY. Father Ovarian Cancer Mother No Known Problems Sister Relation Status Comments Brother Alive Father Mother Sister Alive Social History Tobacco Use Types Packs/Day Years Used Date Smoking Tobacco: Never Smokeless Tobacco: Never Tobacco Cessation:Counseling Given: No Alcohol Use Standard Drinks/Week Comments Not Currently 0 (1 standard drink = 0.6 oz pur e alcohol) AUDIT-C Answer Date Recorded Frequency of Alcohol Consumption Never 06/21/2019 Average Number of Drinks Not on file Frequency of Binge Drinking Not on file 10/2018 PHQ-2 Answer Date Recorded Patient Health Questionnaire-2 Score 0 10/19/2024 Education Answer Date Recorded What is the highest level of school you have completed or the highest degree you have received? 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 Not on file Not on file Last Filed Vital Signs Vital Sign Reading Time Taken Comments Blood Pressure 141/83 10/24/2024 10:25 AM COUNSELLORS Pulse 83 10/24/2024 9:39 AM COUNSELLORS Temperature 36.2 C (97.2 F) 10/24/2024 9:39 AM COUNSELLORS Respiratory Rate 16 08/01/2024 9:00 AM COUNSELLORS Oxygen Saturation 99% 10/24/2024 9:39 AM COUNSELLORS Inhaled Oxygen Concentration - - Weight 66.3 kg (146 lb 3.2 oz) 10/24/2024 9:39 A M COUNSELLORS Height 172.7 cm (5' 8 ) 10/24/2024 9:39 AM COUNSELLORS Body Mass Index 22.23 10/24/2024 9:39 AM COUNSELLORS Plan of Treatment Upcoming Encounters Date Type Department Care Team (Latest Contact Info) Description 12/08/2024 8:40 AM CDT Office Visit [facility] Medical [facility] [address] [phone] Dian Arauz APNP [address] [place] [address] 01/03/2025 9:40 AM CDT Hospital Encounter [facility] Interventional [place] [address] [id number] Roseline Ross MD Three [address] [address] 01/03/2025 9:40 AM CDT - 01/03/2025 10:00 AM CDT Surgery [facility] [place] [address] [id number] Roseline Ross MD Three [facility] [address] [place] [address] INJECTION FACET JOINT L4-5 02/15/2025 10:20 AM CDT [facility] [address], [address] [place] [phone] Vickie Bcuk APRN [address] [facility] [address] [place] [address] 04/24/2025 10:00 AM CDT Office [facility] [address], [address] [place] [phone] Elroy Shaikh MD [address] [place] [address] Scheduled Procedures Name Priority Associated Diagnoses Date/Ti me INJECTION FACET JOINT Lumbar spondylosis 01/03/2025 9:40 AM CDT Health Maintenance Due Date Last Done Comments Zoster Vaccines (2 of 3) 08/01/2014 06/06/2014 Annual Medicare Wellness Visit 2018 COVID-19 Vaccine ( season) 2024 07/11/2021, 11/26/2020, 10/23/2020 Mammogram Screening 12/02/2024 12/03/2023, 12/01/2022, 11/27/2021, Additional history exists Colorectal Cancer Screening Colonoscopy (10 Years) 05/01/2026 05/01/2016 RSV Immunization or 60+ Years (1 - 1-dose 75+ series) 2028 DTaP, Tdap and Td Vaccines (4 - Td or Tdap) 06/29/2033 06/29/2023, 09/16/2014, 07/12/2014 Dexa Scan (General) Completed 12/01/2022, 12/01/2022, 10/03/2020, Additional history exists Pneumococcal Vaccine: 65+ Years Completed 08/03/2023, 06/24/2020 Hepatitis C Completed 12/08/2023 Influenza Adult Completed 07/04/2024, 05/22, 06/22/2022, Additional history exists PHQ-2 (Physician [place]) Completed 10/19/2024 Meningococcal B Vaccine Aged Out No l onger eligible based on patient's age to complete this topic Meningococcal Vaccine Aged Out No silvino cas eligible based on patient's age to complete this topic RSV Immunizations Under 20 Months Aged Out No longer eligible based on patient's age to complete this topic Procedures Procedure Name Priority Date/Time Associated Diagnosis Comments PROTEIN, ELECTROPHORESIS Routine 10/24/2024 11:11 AM COUNSELLORS Neuropathy KAPPA LAMBDA FREE RATIO (QST) Routine 10/24/2024 11:11 AM COUNSELLORS Neuropathy VITAMIN B1 THIAMINE Routine 10/24/2024 1 1:11 AM COUNSELLORS Neuropathy VITAMIN B6 Routine 10/24/2024 11:11 AM COUNSELLORS Neuropathy VITAMIN B-12 Routine 10/24/2024 11:11 AM COUNSELLORS Neuropathy HEPATITIS C ANTIBODY W/RFX TO HCV RNA Routine 12/08/2023 8:33 AM CDT MAMMOGRAM GENERIC (SCAN ORDER) 12/03/2023 BONE DENSITY GENERIC (SCAN ORDER) 12/01/2022 COLONOSCOPY GENERIC (SCAN ORDER) 05/01/2016 from Last 3 Months or Most Recently Relevant to Health Maintenance Results * KAPPA LAMBDA FREE RATIO (QST) (10/24/2024 11:11 AM COUNSELLORS) KAPPA FREE LIGHT CHAIN 13.6 3.3 - 19.4 mg/L 10/26/2024 9:07 PM COUNSELLORS [facility] LAMBDA FREE LIGHT CHAIN 11.8 5.7 - 26.3 mg/L 10/26/2024 9:07 PM COUNSELLORS [facility] KAPPA/LAMBDA FREE 1.15 0.26 - 1.65 10/26/2024 9:07 PM COUNSELLORS [facility] LU[facility] DARBY Comment: Free kappa/lambda ratio in serum of normal individuals is 0.26-1.65. Excess production of free kappa or lambda chains can alter the ratio. Monoclonal free light chains are found in the serum of patients with multiple myeloma, Waldenstrom's macroglobulinemia, mu-heavy chain disease, primary amyloidosis, light chain deposition disease, monoclonal gammopathy of undetermined significance, and lymphoproliferative disorders. Measurement of free light chain concen- tration in serum is useful for diagnosis, prognosis, monitoring disease activity and following response to therapy of these disorders. Test Performed by [facility], [facility], [address] [place] [address] Telly Orantes M.D., Ph.D., Director of Laboratories , [place] [id number] 10/24/2024 11:1 1 AM COUNSELLORS Elroy Shaikh MD LABORATORY Final Res ult [facility] [address] [address], [place] [phone] * VITAMIN B-12 (10/24/2024 11:11 AM COUNSELLORS) VITAMIN B12 S/P/B 736 254 - 1,320 PG/ML 10/24/2024 3:41 PM COUNSELLORS [facility] 10/24/2024 11:1 1 AM COUNSELLORS Elroy Shaikh MD LABORATORY Final Res ult [facility] [address] [place] [address], [place] [phone] * (ABNORMAL) VITAMIN B6 (10/24/2024 11:11 AM COUNSELLORS) VITAMIN B6 S/P/B 85.9(H) 2.1 - 21.7 ng/mL 10/30/2024 12:59 PM COUNSELLORS [facility] Comment: Vitamin supplementation within 24 hours prior to blood draw may affect the accuracy of the results. This test was developed and its analytical performance characteristics have been determined by [facility] [place], [place]. It has not been cleared or approved by the U.S. Food and Drug Administration. This assay has been validated pursuant to the CLIA regulations and is used for clinical purposes. Test Performed by [facility], [address] [place] [address] Telly Orantes M.D., Ph.D., Director of Laboratories , CLIA [id number] 10/24/2024 11:1 1 AM COUNSELLORS Elroy Shaikh MD LABORATORY Final Res ult [employer] [address], * (ABNORMAL) VITAMIN B1 THIAMINE (10/24/2024 11:11 AM COUNSELLORS) [facility] VITAMIN B1 S/P/B 36(H) 8 - 30 nmol/L 10/30/2024 1:15 PM COUNSELLORS [facility] Comment: Vitamin supplementation within 24 hours prior to blood draw may affect the accuracy of the results. This test was developed and its analytical performance characteristics have been determined by [facility] [place], [place]. It has not been cleared or approved by the U.S. Food and Drug Administration. This assay has been validated pursuant to the CLIA regulations and is used for clinical purposes. Test Performed by [facility], [address] [place], [place] Telly Orantes M.D., Ph.D., Director of Laboratories , CLIA [id number] 10/24/2024 11:1 1 AM COUNSELLORS us Elroy Shaikh MD LABORATORY Final Res ult [address] [address] [place] [address], [place] [phone] * (ABNORMAL) PROTEIN, ELECTROPHORESIS (10/24/2024 11:11 AM COUNSELLORS) TOTAL PROTEIN (ELECTROPHORESIS SERUM) 7.5 6.1 - 8.1 g/dL 10/27/2024 2:31 PM COUNSELLORS [facility] [place] ALBUMIN ELECTROPHORESIS S/P/B 5.0(H) 3.8 - 4.8 g/dL 10/27/2024 2:31 PM COUNSELLORS [facility] [place] [id number] S/P/B 0.3 0.2 - 0.3 g/dL 10/27/2024 2:31 PM COUNSELLORS [facility] [place] [id number] S/P/B 0.7 0.5 - 0.9 g/dL 10/27/2024 2:31 PM COUNSELLORS [facility] [place] BETA 1 GLOBULIN S/P/B 0.4 0.4 - 0.6 g/dL 10/27/2024 2:31 PM COUNSELLORS [facility] [place] BETA 2 GLOBULIN S/P/B 0.3 0.2 - 0.5 g/dL 10/27/2024 2:31 PM COUNSELLORS [facility] [place] GAMMA GLOBULIN S/P/B 0.8 0.8 - 1.7 g/dL 10/27/2024 2:31 PM COUNSELLORS [facility] [place] ABNORMAL PROTEIN BAND 1 S/P/B REPORT 10/27/2024 2:31 PM COUNSELLORS [facility] [place] [facility] Comment: No M Cory detected. Reference Range: None Detected ABNORMAL PROTEIN BAND 3 S/P/B END OF REPORT 10/27/2024 2:31 PM COUNSELLORS [facility] [place] ELECTROPHORESIS INTERPRETATION REPORT(A) 10/27/2024 2:31 PM COUNSELLORS [facility] [place] [facility] Comment: Evaluation reveals a non-specific pattern. It is frequently seen in otherwise healthy individuals, but may also reflect dehydration. In the absence of dehydration the pattern is probably without clinical significance. Test Performed by [facility], [facility], [address] [place], [place] Telly Orantes M.D., Ph.D., Director of Laboratories , [facility] [id number] 10/24/2024 11:1 1 AM COUNSELLORS Elroy Shaikh MD LABORATORY Final Res ult Performing Organization Address City/[facility]/ZIP Co de Phone Number [facility] [place] [phone] [place], [place] , * HEPATITIS C ANTIBODY W/RFX TO HCV RNA (12/08/2023 8:33 AM CDT) HEPATITIS C AB NON-REACT NEVILLE NON-REACT NEVILLE [facility] Comment: HCV antibody was non-reactive. There is no laboratory evidence of HCV infection. In most cases, no further action is required. However, if recent HCV exposure is suspected, a test for HCV RNA (test code 74181) is suggested. For additional information please refer to http://education.NewsPin/faq/TXU92x3 (This link is being provided for informational/ educational purposes only.) 12/08/2023 8:33 AM CDT 12/08/2023 8:35 AM CDT Narrative [facility] - EITENNE ORDERS - 12/11/2023 9:39 AM CDT FASTING:YES FASTING: YES Resulting Agency Comment Performing Organization Information: Site ID: CT Name: [facility] Address: [address] [place] [address] Director: Sridhar James MD Dian TRUJILLO LABORATORY Final Resul t [facility] - ETIENNE AGNES [facility] [address] [place] [address], [place] * MAMMOGRAM GENERIC (SCAN ORDER) (12/03/2023) Anatomical Region Laterality Modality Other 12/03/2023 us [facility] Scanned SCANNING Final Resu lt * BONE DENSITY GENERIC (12/01/2022) Anatomical Region Laterality Modality Other 12/01/2022 us [facility] Scanned SCANNING Final Resu lt * COLONOSCOPY GENERIC (05/01/2016) 05/01/2016 Narrative 05/01/2016 Ordered by an unspecified provider. 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
--- OUTSIDE RECORDS SUMMARY | 2024-12-04 09:02 | XMS_ITS | Encounter Summary ---
Author Organization [facility] Address [address] [place] [address] Care Team Providers Care Broadcast Journalist Name Role Phone Dian Arauz Primary Care Provider [phone] Encounter Details Date Type Department Care Team (Late st Contact Info) Description 03/02/2020 Prep for Procedure [facility] [address] [facility] [address] [place], [place] [id number] Benito Prather MD [address] [place] [address] Social History Tobacco Use Types Packs/Day Years Used Date Smoking Tobacco: Never Smokeless Tobacco: Never Alcohol Use Standard Drinks/Week Comments No 0 (1 standard drink = 0.6 oz pur e alcohol) AUDIT-C Answer Date Recorded Frequency of Alcohol Consumption Never 06/21/2019 Average Number of Drinks Not on file 019 Frequency of Binge Drinking Not on file 10/2018 PHQ-2 Answer Date Recorded PHQ-2 Score 0 08/29/2019 Comments No Sex and Gender Information Value Date Recorded Sex Assigned at Female 10/24/2024 10:59 AM HIDE EXAMINER Legal Sex Female 9:40 PM CDT Gender Identity Not on file Sexual Orientation Not on file COVID-19 Exposure Response Date Recorded In the last month, have you been in contact with someone who was confirmed or suspected to have Coronavirus / COVID-19? No / Unsure 03/05/2020 10:18 AM CDT documented as of this encounter Plan of Treatment Upcoming Encounters Date Type Department Care Team (Latest Contact Info) Description 12/08/2024 8:40 AM CDT Office Visit [facility] Family & Internal Medicine - [place] [address] [place] [address] Dian Arauz APNP [address] [place] [address] 01/03/2025 9:40 AM CDT Hospital Encounter [facility] Interventional [place] [address] [id number] Roseline Ross MD [address] [facility] [address] [place] [address] 01/03/2025 9:40 AM CDT - 01/03/2025 10:00 AM CDT Surgery [facility] Interventional [place] [address] [id number] Roseline Ross MD [address] [facility] [address] [place] [address] INJECTION FACET JOINT L4-5 02/15/2025 10:20 AM CDT Office Visit [facility] Multispecialty Care - [address], [address] [place] [address] Vickie Buck APRN 3 [facility] [address] [place] [address] 04/24/2025 10:00 AM CDT [facility] [address], [address] [place] [phone] Elroy Shaikh MD [address] [place] [address] Scheduled Procedures Name Priority Associated Diagnoses Date/Ti me INJECTION FACET JOINT Lumbar spondylosis 01/03/2025 9:40 AM CDT documented as of this encounter Results * PRE-SURGICAL/PRE-PROCEDURE CORONAVIRUS (COVID 19) (03/02/2020 10:30 AM CDT) CORONAVIRUS SARS COV 2 PCR (RESP) NOT DETECTED NOT DETECTED 03/03/2020 1:50 PM CDT [facility] Comment: A Not Detected (negative) test result for this test means that SARS- CoV-2 RNA was not present in the specimen above the limit of detection. A negative result does not rule out the possibility of COVID-19 and should not be used as the sole basis for treatment or patient management decisions. If COVID-19 is still suspected, based on exposure history together with other clinical findings, re-testing should be considered in consultation with public health authorities. Laboratory test results should always be considered in the context of clinical observations and epidemiological data in making a final diagnosis and patient management decisions. Please review the Fact Sheets and FDA authorized labeling available for health care providers and patients using the following websites: https://www.[employer].com/home/Covid-19/HCP/QuestIVD/fact- sheet.html https://www.[employer].Securens/home/Covid-19/Patients/ QuestIVD/fact-sheet.html This test has been authorized by the FDA under an Emergency Use Authorization (EUA) for use by authorized laboratories. Due to the current public health emergency, [facility] is receiving a high volume of samples from a wide variety of swabs and media for COVID-19 testing. In order to serve patients during this public health crisis, samples from appropriate clinical sources are being tested. Negative test results derived from specimens received in non-commercially manufactured viral collection and transport media, or in media and sample collection kits not yet authorized by FDA for COVID-19 testing should be cautiously evaluated and the patient potentially subjected to extra precautions such as additional clinical monitoring, including collection of an additional specimen. Methodology: Nucleic Acid Amplification Test (NAAT) includes PCR or TMA Additional information about COVID-19 can be found at the [facility] website: www.[employer].Securens/Covid19. Test performed at [facility] [place] [address] [place] [address] Director: CHUCK JORDAN DO,MPH NASOPHARYNGEAL SWAB / Unknown 03/02/2020 10:30 AM CDT us Benito Prather MD MICROBIOLOGY - GENERAL ORDERABL ES Final Result [facility] [address] [address] documented in this encounter Visit Diagnoses Diagnosis Preoperative testing- Primary Preoperative examination, unspecified Tendon rupture, nontraumatic, hand or wrist extensor, left Lumbar spondylosis Lumbosacral spondylosis without myelopathy documented in this encounter Additional Health Concerns Infection Onset Date Last Indicated Resolved Time COVID-19 Rule Out 03/02/2020 03/02/2020 03/03/2020 1:50 PM CDT Assessment Noted Time PHQ-9 Depression Total Score: 0 06/21/20 19 10:05 AM CDT documented as of this encounter Care Teams Broadcast Journalist Relationship Specialty Start Date End Date Dian Arauz APNP [address] [place] [address] PCP - General NURSE PRACTITIONER 08/29/18 documented as of this encounter
--- OUTSIDE RECORDS SUMMARY | 2024-12-04 09:02 | XMS_ITS | Encounter Summary ---
Author Organization [facility] Address [address] [place] [address] Care Team Providers Care Caretaker Grounds Name Role Phone Dian Arauz Primary Care Provider [phone] Encounter Details Date Type Department Care Team (Late st Contact Info) Description 08/24/2022 [employer] Message Enc [facility] Medical [facility] Family & Internal Medicine [facility] [address] [place] [address] Dian Arauz APNP [address] [place], [place] [phone] Mamm and bone density - scheduled for 12/01/22 Social History Tobacco Use Types Packs/Day Years [...] please move on to questions 3-9 0 06/11/2022 Education Answer Date Recorded What is the highest level of school you have completed or the highest degree you have received? 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 Not on file Not on file documented as of this encounter Plan of Treatment Upcoming Encounters Date Type Department Care Team (Latest Contact Info) Description 12/08/2024 8:40 AM CDT Office Visit [facility] Family & Internal Medicine - [place] [address] [place] [address] Dian Arauz APNP [address] [place] [address] 01/03/2025 9:40 AM CDT Hospital Encounter [facility] Interventional [place] [address] [id number] Roseline Ross MD Three [facility] Suite [facility] [place] [address] 01/03/2025 9:40 AM CDT - 01/03/2025 10:00 AM CDT Surgery [facility] [place] [address] [id number] Roseline Ross MD Three [facility] [address] [place] [address] INJECTION FACET JOINT L4-5 02/15/2025 10:20 AM CDT Office Visit [facility] Medical [facility] Multispecialty Care - [facility] 3 [facility], [address] [place] [address] Vickie Buck APRN 3 [facility] [address] [place] [address] 04/24/2025 10:00 AM CDT Office Visit [facility] Group Multispecialty Care - [facility] 3 [facility], [address] [place] [address] Elroy Shaikh MD 3 [place] [address] Scheduled Procedures Name Priority Associated Diagnoses Date/Ti me INJECTION FACET JOINT Lumbar spondylosis 01/03/2025 9:40 AM CDT documented as of this encounter Visit Diagnoses Not on filedocumented in this encounter Additional Health Concerns Assessment Noted Time PHQ-9 Depression Total Score: 1 08/19/20 21 8:29 AM HOOKER UP documented as of this encounter Care Teams Caretaker Grounds Relationship Specialty Start Date End Date Dian Arauz APNP [address] [place] [address] PCP - General NURSE PRACTITIONER 08/29/18 documented as of this encounter
--- OUTSIDE RECORDS SUMMARY | 2024-12-04 09:02 | XMS_ITS | Encounter Summary ---
Author Organization [facility] Care Team Providers Care Hot Air Furnace Installer Repairer Name Role Phone Dian Arauz Primary Care Provider + Christian Oliveros DO Unavailable [phone] Encounter Details Date Type Department Care Team (Latest Contact Info) Description 08/01/2017 Orders Only [facility] ProviderTrent MD [address] [place] [address] Social History Tobacco Use Types Packs/Day Years Used Date Smoking Tobacco: Never Assessed Comments Unknown Sex and Gender Information Value Date Recorded Sex Assigned at Not on file Legal Sex Female 9:13 PM STRUCTURES TECHNICIAN Gender Identity Not on file Sexual Orientation Not on file documented as of this encounter Plan of Treatment Not on file documented as of this encounter Procedures Procedure Name Priority Date/Time Associated Diagnosis Comments SCAN - LABS 08/02/2017 12:00 AM STRUCTURES TECHNICIAN documented in this encounter Results * SCAN - LABS (08/02/2017 12:00 AM STRUCTURES TECHNICIAN) Narrative 08/02/2017 12:00 AM STRUCTURES TECHNICIAN Ordered by an unspecified provider. Historical Provider Final Res ult documented in this encounter Visit Diagnoses Not on filedocumented in this encounter Care Teams Hot Air Furnace Installer Repairer Relationship Specialty Start Date End Date Dian Arauz PA [address] [place] [address] [phone] PCP - General Nurse Practitioner 11/29/24 Christian Oliveros DO [address] [place] [address] Referring Physician Family Medicine 11/29/24 documented as of this encounter
--- OUTSIDE RECORDS SUMMARY | 2024-12-04 09:02 | XMS_ITS | Encounter Summary ---
Author Organization [facility] Address [address] [place] [address] Care Team Providers Care Flash Welder Name Role Phone Dian Arauz Primary Care Provider [phone] Encounter Details Date Type Department Care Team (Late st Contact Info) Description 04/21/2021 Prep for Procedure [facility] Interventional [place] [address] [id number] Chikis Montejo APNP [address] [place] [address] Social History Tobacco Use Types Packs/Day Years [...] move on to questions 3-9 0 04/17/2020 Education Answer Date Recorded What is the highest level of school you have completed or the highest degree you have received? 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 No / Unsure 04/07/2021 9:31 AM CDT documented as of this encounter Plan of Treatment Upcoming Encounters Date Type Department Care Team (Latest Contact Info) Description 12/08/2024 8:40 AM CDT Office Visit [facility] Family & Internal Medicine - [address] [address] Dian Arauz, RONNIE [address] [place] [address] 01/03/2025 9:40 AM CDT Hospital Encounter [facility] Interventional [place] [address] [id number] Roseline Ross MD Three [facility] [address] [place] [address] 01/03/2025 9:40 AM CDT - 01/03/2025 10:00 AM CDT Surgery [facility] Interventional [place] [address] [id number] Roseline Ross MD Three [facility] [address] [place] [address] INJECTION FACET JOINT L4-5 02/15/2025 10:20 AM CDT Office Visit [facility] Multispecialty Care - [facility] 3 [facility], [address] [place] [address] Vickie Buck APRN 3 [facility] [address] [place] [address] 04/24/2025 10:00 AM CDT Office Visit [facility] Medical Group Multispecialty Care - [address], [address] [place] [address] Elroy Shaikh MD 3 [place] [address] Scheduled Procedures Name Priority Associated Diagnoses Date/Ti me INJECTION FACET JOINT Lumbar spondylosis 01/03/2025 9:40 AM CDT documented as of this encounter Visit Diagnoses Not on filedocumented in this encounter Additional Health Concerns Assessment Noted Time PHQ-9 Depression Total Score: 0 06/21/20 19 10:05 AM CDT documented as of this encounter Care Teams Flash Welder Relationship Specialty Start Date End Date Dian Arauz APNP [address] [place] [address] PCP - General NURSE PRACTITIONER 08/29/18 documented as of this encounter
--- OUTSIDE RECORDS SUMMARY | 2024-12-04 09:02 | XMS_ITS | Encounter Summary ---
Author Organization [facility] Address [address] [place] [address] Care Team Providers Care Lot Attendant Name Role Phone Dian Arauz Primary Care Provider [phone] Reason for Visit * Reason Onset Date Comments Pre-authorization 04/15/2024 Question 04/15/2024 Encounter Details Date Type Department Care Team (Latest Contact Info) Description 04/15/2024 [employer] Message Enc [facility] Medical Group Family & Internal Medicine [facility] [address] [place] [address] Dian Arauz APNP [address] [place] [address] EMG and MRI appointments Social History Tobacco Use Types Packs/Day Years Used Date Smoking Tobacco: Never Smokeless Tobacco: Never Alcohol Use Standard Drinks/Week Comments Not Currently 0 (1 standard drink = 0.6 oz pur e alcohol) AUDIT-C Answer Date Recorded Frequency of Alcohol Consumption Never 06/21/2019 Average Number of Drinks Not on file 019 Frequency of Binge Drinking Not on file 10/2018 PHQ-2 Answer Date Recorded Patient Health Questionnaire-2 Score 0 11/02/2023 Education Answer Date Recorded What is the highest level of school you have completed or the highest degree you have received? 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 Not on file Not on file documented as of this encounter Plan of Treatment Upcoming Encounters Date Type Department Care Team (Latest Contact Info) Description 12/08/2024 8:40 AM CDT Office Visit [facility] Family & Internal Medicine - [place] [address] [place] [address] Dian Arauz APNP [address] [place] [address] 01/03/2025 9:40 AM CDT Hospital Encounter [facility] Interventional Pain [place] [address] [id number] Roseline Ross MD Three [facility] Suite [facility] [place] [address] 01/03/2025 9:40 AM CDT - 01/03/2025 10:00 AM CDT Surgery [facility] [place] [address] [id number] Roseline Ross MD Three [facility] [address] [place] [address] INJECTION FACET JOINT L4-5 02/15/2025 10:20 AM CDT Office Visit [facility] Multispecialty Care - [facility] 3 [facility], [address] [place] [address] Vickie Buck APRN 3 [facility] [address] [place] [address] 04/24/2025 10:00 AM CDT Office Visit [facility] Medical Group Multispecialty Care - [facility] 3 [facility], [address] [place] [address] Elroy Shaikh MD 3 [place] [address] Scheduled Procedures Name Priority Associated Diagnoses Date/Ti me INJECTION FACET JOINT Lumbar spondylosis 01/03/2025 9:40 AM CDT documented as of this encounter Visit Diagnoses Not on filedocumented in this encounter Additional Health Concerns Assessment Noted Time PHQ-9 Depression Total Score: 0 11/02/19 24 9:01 AM CATH LAB documented as of this encounter Care Teams Lot Attendant Relationship Specialty Start Date End Date Dian Arauz APNP [facility] [place] [address] PCP - General NURSE PRACTITIONER 08/29/18 documented as of this encounter
--- OUTSIDE RECORDS SUMMARY | 2024-12-04 09:02 | XMS_ITS | Clinical Summary ---
Author Organization [facility] Address [address] [place] [address] Care Team Providers Care Ceramic Artist Name Role Phone Dian Arauz Primary Care Provider + Christian Oliveros DO Unavailable Allergies No known active allergies Medications naproxen (ALEVE) 220 mg tablet Take 1 tablet (220 mg total) by mouth 2 (two) times a day with meals Active Active Problems Problem Noted Date Diagnosed Date Lumbar radiculopathy 11/29/2024 Encounters Date Type Department Care Team Description 11/29/2024 11:35 AM CDT - 11/29/2024 11:59 PM CDT Hospital Encounter [facility] [address] [place] [address] Numbness in feet; Lumbar radiculopathy; Spinal stenosis of lumbar region without neurogenic claudication Discharge Disposition: Discharge to home or self care 11/29/2024 11:00 AM CDT Office Visit [facility] [address] [place] [address] [address], [address] [place] [address] Fernando Nieto PA Lumbar radiculopathy (Primary Dx); Numbness in feet; Spinal stenosis of lumbar region without neurogenic claudication from Last 3 Months Social History Tobacco Use Types Packs/Day Years Used Date Smoking Tobacco: Never Assessed Comments Unknown Sex and Gender Information Value Date Recorded Sex Assigned at Not on file Legal Sex Female 9:13 PM MANAGER FLEET Gender Identity Not on file Sexual Orientation Not on file Obstetrics History Last Filed Vital Signs Vital Sign Reading [...] 11/29/2024 10:46 AM CDT Plan of Treatment Health Maintenance Due Date Last Done Comments Breast Cancer Screening-Mammogram 1955 Colon Cancer Screening-Colonoscopy 1955 Depression Screening 1955 Fall Risk Assessment 1955 Hepatitis C Screening 1955 Osteoporosis Screening-Bone Density Scan 1953 Hepatitis B Screening 1971 Zoster Vaccine (2 of 3) 08/01/2014 06/06/2014 Well Visit 65+ 2018 Covid-19 Vaccine (4 - 2023-2 5 season) 2024 07/11/2021, 11/26/2020, 10/23/2020 DTaP/Tdap/Td Vaccine (4 - Td or Tdap) 06/29/2033 06/29/2023, 09/16/2014, 07/12/2014 Pneumococcal vaccine 65+ Completed 08/03/2023, 01/2020 Influenza Vaccine Completed 07/04/2024, , 06/22/2022, Additional history exists Procedures Procedure Name Priority Date/Time Associated Diagnosis [...] - Electronically signed by Pedro Friedman M.D. LC T: Report ID: [id number] Reading Location: [id number] Procedure Note Maria D Friedman MD - [...] signed by Pedro CLARK T: Report ID: [id number] Reading Location: [id number] Fernando CORDERO IMG XR PROCEDURES Final Re [...] signed by Pedro CLARK T: Report ID: [id number] Reading Location: [id number] Procedure Note Maria D Friedman MD - [...] signed by Pedro CLARK T: Report ID: [id number] Reading Location: [place] [address] Fernando CORDERO IMG XR PROCEDURES Final Re sult from Last 3 Months Insurance [facility] Care Teams Ceramic Artist Relationship Specialty Start Date End Date Dian Arauz PA [address] [place] [address] [phone] PCP - General Nurse Practitioner 11/29/24 Christian Oliveros DO [address] [place] [address] Referring Physician Family Medicine 11/29/24
--- OUTSIDE RECORDS SUMMARY | 2024-12-04 09:02 | XMS_ITS | Encounter Summary ---
Author Organization [facility] Address [address] [place] [address] Care Team Providers Care Hospice Clinical Supervisor Name Role Phone Amanda Arauzmamta TRUJILLO Primary Care Provider [phone] Encounter Details Date Type Department Care Team (Latest Contact Info) Description 05/15/2024 [employer] Message Enc [facility] Interventional Pain [place] [address] [id number] [facility] Provider Pain Management Appointment Social History Tobacco Use Types Packs/Day Years [...] Sex Assigned at Female 10/24/2024 10:59 AM AUDIT SPECIALIST Legal Sex Female 9:40 PM CDT Gender Identity Not on file Sexual Orientation Not on file 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, 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 Not on file Not on file documented as of this encounter Plan of Treatment Upcoming Encounters Date Type Department Care Team (Latest Contact Info) Description 12/08/2024 8:40 AM CDT Office Visit [facility] Family & Internal Medicine - [place] [address] [place] [address] Dian Arauz APNP [address] [place] [address] 01/03/2025 9:40 AM CDT Hospital Encounter [facility] Interventional Pain [place] [address] [id number] Roseline Ross MD Three [facility] [address] [place] [address] 01/03/2025 9:40 AM CDT - 01/03/2025 10:00 AM CDT Surgery [facility] Interventional Pain Management [place] [address] [id number] Roseline Ross MD Three [facility] [address] [place] [address] INJECTION FACET JOINT L4-5 02/15/2025 10:20 AM CDT Office Visit [facility] Multispecialty Care - [facility] 3 [facility], [address] [place] [address] Vickie Buck APRN 3 [facility] [address] [place] [address] 04/24/2025 10:00 AM CDT Office Visit [facility] Multispecialty Care - [address], [address] [place] [phone] Elroy Shaikh MD [address] [place] [address] Scheduled Procedures Name Priority Associated Diagnoses Date/Ti me INJECTION FACET JOINT Lumbar spondylosis 01/03/2025 9:40 AM CDT documented as of this encounter Visit Diagnoses Not on filedocumented in this encounter Additional Health Concerns Assessment Noted Time PHQ-9 Depression Total Score: 0 11/02/19 24 9:01 AM AUDIT SPECIALIST documented as of this encounter Care Teams Hospice Clinical Supervisor Relationship Specialty Start Date End Date Dian Arauz APNP [address] [place] [address] PCP - General NURSE PRACTITIONER 08/29/18 documented as of this encounter
--- OUTSIDE RECORDS SUMMARY | 2024-12-04 09:02 | XMS_ITS | Clinical Summary ---
Author Organization [facility] Care Team Providers Care Roll Inspector Name Role Phone Unavailable Primary Care Provider Unavailabl e Social History Tobacco Use Types Packs/Day Years Used Date Smoking Tobacco: Never Assessed Comments Unknown Sex and Gender Information Value Date Recorded Sex Assigned at Not on file Legal Sex Female 10:23 AM WEATHER OBSERVER Gender Identity Not on file Sexual Orientation Not on file Plan of Treatment Health Maintenance Due Date Last Done Comments DEXA Bone Density 1953 Hepatitis C Virus (HCV) Screening 1955 Colonoscopy 1998 Colorectal Cancer Screening 1998 Cologuard 2003 Immunochemical Fecal Occult Blood 2003 Mammogram 2003 Zoster Immunization (2 of 3) 08/01/2014 06/06/2014 Pneumococcal Immunization (50+ years) (2 of 2 - PCV) 06/24/2021 06/24/2020 Influenza Immunization (#1) 05/21/202401/2020, 06/21/2019, 06/24/2018, Additional history exists SARS-COV-2 Immunization ( - 2023- season) 2024 Respiratory Syncytial Virus (RSV) Immunization (Adult) (1 - 1-dose 75+ series) 2028 DTaP/Tdap/Td Immunization Discontinued 09/16/2014, TdaP Immunization Completed 09/16/2014, 07/12/2014 Hepatitis B Immunization Aged Out No longer eligible based on patient's age to complete this topic Meningococcal Immunization (ACWY) Aged Out No longer eligible based on patient's age to complete this topic Rotavirus Immunization Aged Out No lo nger eligible based on patient's age to complete this topic
--- OUTSIDE RECORDS SUMMARY | 2024-12-04 09:02 | XMS_ITS | Encounter Summary ---
Author Organization [facility] Address [address] [place] [address] Care Team Providers Care Blanching Machine Operator Name Role Phone Regla Dian TRUJILLO Primary Care Provider [phone] Encounter Details Date Type Department Care Team (Latest Contact Info) Description 10/19/2024 [employer] 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 Not on file Not on file documented as of this encounter Plan of Treatment Upcoming Encounters Date Type Department Care Team (Latest Contact Info) Description 12/08/2024 8:40 AM CDT Office Visit [facility] Family & Internal Medicine - [place] [phone] [place] [address] Dian Arauz APNP [facility][note 3]1 [place] [address] 01/03/2025 9:40 AM CDT Hospital Encounter [facility] Interventional [place] [address] [phone] Roseline Ross MD Three [facility] [address] [place] [address] 01/03/2025 9:40 AM CDT - 01/03/2025 10:00 AM CDT Surgery [facility] Interventional Pain [place] [address] [phone] Roseline Ross MD Three [facility] [address] [place] [address] INJECTION FACET JOINT L4-5 02/15/2025 10:20 AM CDT Office Visit [facility] Multispecialty Care - [address], [address] [place] [address] Vickie Buck APRN 3 [facility] [address] [place] [address] 04/24/2025 10:00 AM CDT [facility] [address], [address] [place] [phone] Elroy Shaikh MD [address] [place] [address] Scheduled Procedures Name Priority Associated Diagnoses Date/Ti me INJECTION FACET JOINT Lumbar spondylosis 01/03/2025 9:40 AM CDT documented as of this encounter Visit Diagnoses Not on filedocumented in this encounter Additional Health Concerns Assessment Noted Time PHQ-9 Depression Total Score: 0 11/02/19 9:01 AM FISH HATCHERY SPECIALIST documented as of this encounter Care Teams Blanching Machine Operator Relationship Specialty Start Date End Date Dian Arauz APNP [facility][note 3]1 [place] [address] PCP - General NURSE PRACTITIONER 08/29/18 documented as of this encounter
--- OUTSIDE RECORDS SUMMARY | 2024-12-04 09:02 | XMS_ITS | Encounter Summary ---
Author Organization [facility] Address [address] [place] [address] Care Team Providers Care Title One Reading Teacher Name Role Phone Dian Arauz Primary Care Provider [phone] Reason for Referral * Consultation (Routine) - Closed Specialty Diagnoses / Procedures Referred By Nicolasa burger Referred To Contact DERMATOLOGY Diagnoses Screening for malignant neoplasm of skin Procedures OFFICE/OUTPATIENT NEW LOW MDM 30-44 MINUTES OFFICE/OUTPT VISIT,NEW,LEVL IV OFFICE/OUTPT VISIT,NEW,LEVL V OFFICE/OUTPT VISIT,EST,LEVL III OFFICE/OUTPT VISIT,EST,LEVL IV OFFICE/OUTPT VISIT,EST,LEVL V Dian Arauz APNP [address] [place] [address] Phone: tel: fax: Sneha Kuhn MD [address] [place] [address] Phone: tel: fax: Referral ID Status Reason Start Date Expiration Date V isits Requested Visits Authorized [id number] Closed Specialty Services 08/03/2023 08/03/2024 6 6 Encounter Details Date Type Department Care Team (Late st Contact Info) Description 06/28/2023 MyChart Message Enc [facility] Medical Group Family & Internal Medicine [facility] [address] [place] [address] Dian Arauz APNP [address] [place] [address] 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 Kuhn-annual exam 08/06/2023 Would you please give me a referral to Dr. Kuhn for my annual exam on August 06, 2023. Thank you. documented in this encounter Plan of Treatment Upcoming Encounters Date Type Department Care Team (Latest Contact Info) Description 12/08/2024 8:40 AM CDT Office Visit [facility] Medical Group Family & Internal Medicine - [address] [phone] Dian Arauz APNP [address] [place] [address] 01/03/2025 9:40 AM CDT Hospital Encounter [facility] Interventional Pain Management [place] [address] [id number] Roseline Ross MD Three [facility] [address] [place] [address] 01/03/2025 9:40 AM CDT - 01/03/2025 10:00 AM CDT Surgery [facility] Interventional Pain Management [place] [address] [id number] Roseline Ross MD Three [facility] [address] [place] [address] INJECTION FACET JOINT L4-5 02/15/2025 10:20 AM CDT [facility] [address] [place] [address] Vickie Buck APRN 3 [facility] [address] [place] [address] 04/24/2025 10:00 AM CDT [facility] 3 [facility], [address] [place] [address] Elroy Shaikh MD 3 [place] [address] Scheduled Procedures Name Priority Associated Diagnoses Date/Ti me INJECTION FACET JOINT Lumbar spondylosis 01/03/2025 9:40 AM CDT Scheduled Referrals Name Type Priority Associated Diagnoses Orde r Schedule Ambulatory referral to Dermatology Referral Routine Screening for malignant neoplasm of skin Ordered: 06/28/2023 documented as of this encounter Visit Diagnoses Diagnosis Screening for malignant neoplasm of skin- Primary Screening for malignant neoplasm of the skin Lumbar spondylosis Lumbosacral spondylosis without myelopathy documented in this encounter Additional Health Concerns Assessment Noted Time PHQ-9 Depression Total Score: 1 08/19/20 21 8:29 AM ENGRAVER TENDER documented as of this encounter Care Teams Title One Reading Teacher Relationship Specialty Start Date End Date Dian Arauz APNP [address] [place] [address] PCP - General NURSE PRACTITIONER 08/29/18 documented as of this encounter
--- OUTSIDE RECORDS SUMMARY | 2024-12-04 09:02 | XMS_ITS | Encounter Summary ---
Author Organization [facility] Address [address] [place] [address] Care Team Providers Care Underwriting Assistant Name Role Phone Dian Arauz Primary Care Provider [phone] Reason for Visit * Reason Onset Date Comments Radiology Results 06/06/2024 Encounter Details Date Type Department Care Team (Late st Contact Info) Description 06/06/2024 [employer] Message Enc [facility] Medical Group Family & Internal Medicine [facility] [address] [place] [address] Dian Arauz APNP [address] [place] [address] MRI results from June 01 Social History Tobacco Use Types Packs/Day Years [...] Sex Assigned at Female 10/24/2024 10:59 AM BRANCH OPERATIONS COORDINATOR Legal Sex Female 9:40 PM CDT Gender Identity Not on file Sexual Orientation Not on file 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, 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 Not on file Not on file documented as of this encounter Plan of Treatment Upcoming Encounters Date Type Department Care Team (Latest Contact Info) Description 12/08/2024 8:40 AM CDT Office Visit [facility] Family & Internal Medicine - [place] [address] [place] [address] Dian Arauz APNP [address] [place] [address] 01/03/2025 9:40 AM CDT Hospital Encounter [facility] Interventional [place] [address] [phone] Roseline Ross MD Three [facility] Suite [facility] [place] [address] 01/03/2025 9:40 AM CDT - 01/03/2025 10:00 AM CDT Surgery [facility] Interventional Pain [place] [address] [phone] Roseline Ross MD Three [facility] [address] [place] [address] INJECTION FACET JOINT L4-5 02/15/2025 10:20 AM CDT Office Visit [facility] Multispecialty Care - [facility] 3 [facility], [address] [place] [address] Vickie Buck APRN 3 [facility] [address] [place] [address] 04/24/2025 10:00 AM CDT Office Visit [facility] Multispecialty Care - [facility] 3 [facility], [address] [place] [address] Elroy Shaikh MD 3 [place] [address] Scheduled Procedures Name Priority Associated Diagnoses Date/Ti me INJECTION FACET JOINT Lumbar spondylosis 01/03/2025 9:40 AM CDT documented as of this encounter Visit Diagnoses Not on filedocumented in this encounter Additional Health Concerns Assessment Noted Time PHQ-9 Depression Total Score: 0 11/02/19 24 9:01 AM BRANCH OPERATIONS COORDINATOR documented as of this encounter Care Teams Underwriting Assistant Relationship Specialty Start Date End Date Dian Arauz APNP [address] [place] [address] PCP - General NURSE PRACTITIONER 08/29/18 documented as of this encounter
--- OUTSIDE RECORDS SUMMARY | 2024-12-04 09:02 | XMS_ITS | Encounter Summary ---
Author Organization [facility] Address [address] [place] [address] Care Team Providers Care Scientist Engineer Name Role Phone Dian Arauz Primary Care Provider [phone] Reason for Referral * Consultation (Routine) - Authorized Specialty Diagnoses / Procedures Referred By Nicolasa burger Referred To Contact DERMATOLOGY Diagnoses Screening for malignant neoplasm of skin Procedures OFFICE/OUTPATIENT NEW LOW MDM 30-44 MINUTES OFFICE/OUTPT VISIT,NEW,LEVL IV OFFICE/OUTPT VISIT,NEW,LEVL V OFFICE/OUTPT VISIT,EST,LEVL III OFFICE/OUTPT VISIT,EST,LEVL IV OFFICE/OUTPT VISIT,EST,LEVL V Dian Arauz APNP [address] [place] [address] Phone: tel: fax: Sneha Kuhn MD [address] [place] [address] Phone: tel: fax: Referral ID Status Reason Start Date Expiration Date Visits Requested Visits Authorized [id number] Authorized Specialty Services 10/27/2024 10/27/2025 12 12 Scheduling Instructions Patient has appointment scheduled for November 02, 2024, is needing [facility] referral. ER APPRENTICE PHOTOENGRAVING Encounter Details Date Type Department Care Team (Late st Contact Info) Description 09/22/2024 MyChart Message Enc [facility] Medical Group Family & Internal Medicine [facility] [address] [place] [phone] Dian Arauz APNP [address] [place] [address] 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 Not on file Not on file documented as of this encounter Plan of Treatment Upcoming Encounters Date Type Department Care Team (Latest Contact Info) Description 12/08/2024 8:40 AM CDT Office Visit [facility] Medical Group Family & Internal Medicine [place] [address] [place] [address] Dian Arauz APNP [address] [place] [address] 01/03/2025 9:40 AM CDT Hospital Encounter [facility] Interventional Pain [place] [address] [phone] Roseline Ross MD Three [facility] [address] [place] [address] 01/03/2025 9:40 AM CDT - 01/03/2025 10:00 AM CDT Surgery [facility] Interventional Pain [place] [address] [phone] Roseline Ross MD Three [facility] [address] [place] [address] INJECTION FACET JOINT L4-5 02/15/2025 10:20 AM CDT [facility] 3 [facility], [address] [place] [address] Vickie Buck APRN 3 [facility] [address] [place] [address] 04/24/2025 10:00 AM CDT [facility] 3 [facility], [address] [place] [address] Elroy Shaikh MD 3 [place] [address] Scheduled Procedures Name Priority Associated Diagnoses Date/Ti me INJECTION FACET JOINT Lumbar spondylosis 01/03/2025 9:40 AM CDT Scheduled Referrals Name Type Priority Associated Diagnoses Orde r Schedule Ambulatory referral to Dermatology Referral Routine Screening for malignant neoplasm of skin Ordered: 09/27/2024 documented as of this encounter Visit Diagnoses Diagnosis Screening for malignant neoplasm of skin- Primary Screening for malignant neoplasm of the skin Lumbar spondylosis Lumbosacral spondylosis without myelopathy documented in this encounter Additional Health Concerns Assessment Noted Time PHQ-9 Depression Total Score: 0 11/02/19 24 9:01 AM ETCHER APPRENTICE PHOTOENGRAVING documented as of this encounter Care Teams Scientist Engineer Relationship Specialty Start Date End Date Dian Arauz APNP [address] [place] [address] PCP - General NURSE PRACTITIONER 08/29/18 documented as of this encounter
--- OUTSIDE RECORDS SUMMARY | 2024-12-04 09:02 | XMS_ITS | Encounter Summary ---
Author Organization [facility] Address [address] [place] [address] Care Team Providers Care Geodesist Name Role Phone Dian Arauz Primary Care Provider [phone] Reason for Visit * Reason Onset Date Comments COVID-19 11/22/2024 Encounter Details Date Type Department Care Team (Late st Contact Info) Description 11/22/2024 [employer] Message Enc [facility] Medical Group Family & Internal Medicine [facility] [address] [place] [phone] Dian Arauz APNP [address] [place] [address] COVID positive-chest cough Social History Tobacco Use Types Packs/Day Years [...] Sex Assigned at Female 10/24/2024 10:59 AM TALENT ACQUISITION PROGRAM MANAGER Legal Sex Female 9:40 PM CDT Gender Identity Not on file Sexual Orientation Not on file 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 Oliveros. She has not ever done a VV before, so this MA offered some basic information. Pt would like link sent to her email, not mobile. Pt will attempt to login a few minutes prior to make sure she can. She will call office if she is experiencing difficulties. NT ACQUISITION PROGRAM MANAGER * Christian Oliveros DO - 11/22/2024 8:12 AM CST I'd like to see pt at 10:40. NT ACQUISITION PROGRAM MANAGER documented in this encounter Plan of Treatment Upcoming Encounters Date Type Department Care Team (Latest Contact Info) Description 12/08/2024 8:40 AM CDT Office Visit [facility] Group Family & Internal Medicine - [place] [address] [place] [address] Dian Arauz APNP [address] [place] [address] 01/03/2025 9:40 AM CDT Hospital Encounter [facility] Interventional [place] [address] [id number] Roseline Ross MD Three [facility] Suite [facility] [place] [address] 01/03/2025 9:40 AM CDT - 01/03/2025 10:00 AM CDT Surgery [facility] Interventional [place] [address] [id number] Roseline Ross MD Three [facility] [address] [place] [address] INJECTION FACET JOINT L4-5 02/15/2025 10:20 AM CDT Office Visit [facility] - [address], [address] [place] [address] Vickie Buck APRN 3 [facility] [address] [place] [address] 04/24/2025 10:00 AM CDT Office Visit [facility] - [facility] 3 [facility], [address] [place] [address] Elroy Shaikh MD 3 [place] [address] Scheduled Procedures Name Priority Associated Diagnoses Date/Ti me INJECTION FACET JOINT Lumbar spondylosis 01/03/2025 9:40 AM CDT documented as of this encounter Visit Diagnoses Not on filedocumented in this encounter Additional Health Concerns Assessment Noted Time PHQ-9 Depression Total Score: 0 11/02/19 9:01 AM TALENT ACQUISITION PROGRAM MANAGER documented as of this encounter Care Teams Geodesist Relationship Specialty Start Date End Date Dian Arauz APNP [address] [place] [address] PCP - General NURSE PRACTITIONER 08/29/18 documented as of this encounter
--- OUTSIDE RECORDS SUMMARY | 2024-12-04 09:02 | XMS_ITS | Continuity of Care Document ---
Author Organization [employer] Address [address] [place] [address] Phone Care Team Providers Care Creative Intern Name Role Phone Val Wynne MD Unavailable Unavailable Allergies, Adverse Reactions, Alerts Substance Reaction Status Criticality No Known Allergies Active No Inform ation Medications Medication Instructions Dosage Effective Dates (start - stop) Status Comments ondansetron HCl 4 mg tablet Take one tablet by oral route every 6 hours as needed. - Active ipratropium bromide 0.06 % nasal spray spray 2 spray by intranasal route 3 times every day in each nostril 2.00 spray - Active Aleve 220 mg tablet take 1 tablet by oral route every 24 hours as needed 220 MG - Active Probiotic 3 billion cell chewable tablet - Active Claritin 10 mg tablet take 1 tablet by oral route every day 10 MG - Active multivitamin tablet take 1 tablet by oral route daily - Active Calcium-Vitamin D 600 mg calcium-400 unit tablet take 1 tablet by oral route daily - Active Advance Directives Directive Yes / No Effective Date File Name No Information Encounters Encounter Description Practice Location Reason(s) For Visit Diagnoses Date Provider Providers Copied on Encounter [facility], [address], [place], [place], [id number] , [place] tel:[phone] [place] No Information 7 Ricci Neal. [address] [facility], [facility], [place], [address], [place]. tel:[phone] [facility], [address], [place], [place], [address] , tel: [phone] [place] No Information 6 Ricci Neal. [address], [address], [place]. tel: [phone] [facility] [employer], [address], [place], [place], [address] , tel: [phone] [place] No Information 6 Ukrainian Niles. [address] [place], [place], [id number] , [place]. tel: [phone] [facility], [address], [place], [place], [address] , tel: [phone] [place] Cervical radiculopathy 6 Ricci Neal. [address], [address], [place]. tel: [phone] Referring Provider: Val Wynne, [facility], [facility]. tel:[phone] [facility] [employer], [address], [place], [place], [address] , tel: [phone] [place] [facility] maintenanceSuprapubic pain 6 Ricci Neal. [address], [address], [place]. tel: [phone] Referring Provider: Val Wynne, [facility] [address], [facility]. tel:[phone] [facility] [employer], [address], [place], [place], [address] , [place] tel: [phone] [place] Encounter for immunization 3 5 Ricci Neal. [address], [address], [place]. tel: [phone] Referring Provider: Val Wynne, [facility] [address], [address]. tel:[phone] [facility], [address], [place], [place], [address] , tel: [phone] [place] NEED FOR PROPHYLACTI C VACCINATION WITH COMBINED IALUIVVFUO-OBOQCFT-HR RTUSSIS (DTP) (DTAP) VACCINEInfluenza Vaccine 4 Ricci Neal. [address] [address], [place], [facility], . tel: [phone] Referring Provider: Val Wynne, [address] [place] [address], [place], [facility]. tel:[phone] [facility], [address], [place], [place], [address] , tel: [phone] [place] No Information 4 Ricci Neal. [address] [address], [place], [facility], . tel: [phone] Referring Provider: Val Wynne, [address] [place] [address], [place], [facility]. tel:[phone] [facility], [address], [place], [place], [address] , [place] tel: [phone] [place] Routine health maintenanceHyperchole steremia 4 Ricci Neal. [address], [address], . tel: [phone] Referring Provider: Val Wynne, [address] [place] [address], [facility]. tel:[phone] Family History Family Member Type Diagnosis Age At Onset Problem (finding) Family history of malignant neoplasm of ovary Immunizations Vaccine Date Status Comments influenza, injectable, quadrivalent, (3 years or older) administered Note: Carrington webere: Source Unspecified Influenza, injectable, quadrivalent, preservative free, 3 yrs or older administered Source: New Immuniz ation Record Tdap administered Source: New Imm unization Record influenza, injectable, quadrivalent, (3 years or older) administered Source: New Immuniza tion Record Zoster administered Source: New Imm unization Record Influenza, injectable, quadrivalent, preservative free, 3 yrs or older administered Note: Invalid docum ented admin date was . ; Source: Other Provider Influenza, injectable, quadrivalent, preservative free, 3 yrs or older administered Note: Invalid docum ented admin date was /. ; Source: Other Provider Payers Payer name Insurance type Covered constitution party ID Authoriza tion(s) [place] [id number] [place] [id number] [place] [id number] [place] [id number] Social History Type Description Quantity Date Captured Comments Alcohol Use Details Unknown Caffeine Use Details Unknown Tobacco Use Status No Information Smoking Status No Information Sex Female Chief Complaint And Reason For Visit No Information Reason For Referral Reason For Referral No Information History Of Present Illness Encounter Date Complaint History Of Prese nt Illness No Information Functional Status Date Functional Assessmen t No Information Instructions Date Instruction Additional Infor mation No Information Assessments Type Assessment Date No Information Patient Care Teams Name Effective Dates (start - stop) Status Members No Information
--- OUTSIDE RECORDS SUMMARY | 2024-12-04 09:02 | XMS_ITS | Encounter Summary ---
Author Organization [facility] Address [address] [place] [address] Care Team Providers Care Clip Coater Name Role Phone Dian Arauz Primary Care Provider [phone] Encounter Details Date Type Department Care Team (Latest Contact Info) Description 06/07/2018 Abstract [facility] Jesús Sher MD Social History Tobacco Use Types Packs/Day Years Used Date Smoking Tobacco: Never Assessed Comments Unknown Sex and Gender Information Value Date Recorded Sex Assigned at Female 10/24/2024 10:59 AM TAIL WORKER Legal Sex Female 9:40 PM CDT Gender Identity Not on file Sexual Orientation Not on file documented as of this encounter Plan of Treatment Upcoming Encounters Date Type Department Care Team (Latest Contact Info) Description 12/08/2024 8:40 AM CDT Office Visit [facility] Family & Internal Medicine [facility] [address] [place] [address] Dian Arauz APNP [facility] [place] [address] 01/03/2025 9:40 AM CDT Hospital Encounter [facility] Interventional Pain Management [place] [address] [phone] Roseline Ross MD Three [facility] [address] [place] [address] 01/03/2025 9:40 AM CDT - 01/03/2025 10:[address] [facility] Interventional Pain Management [place] [address] [phone] Roseline Ross MD Three [facility] [address] [place] [address] INJECTION FACET JOINT L4-5 02/15/2025 10:20 AM CDT [facility] [address] [facility], [address] [place] [address] Vickie Buck APRN 3 [facility] [address] [place] [address] 04/24/2025 10:00 AM CDT [facility] [address] [facility], [address] [place] [address] Elroy Shaikh MD 3 [place] [address] Scheduled Procedures Name Priority Associated Diagnoses Date/Ti me INJECTION FACET JOINT Lumbar spondylosis 01/03/2025 9:40 AM CDT documented as of this encounter Visit Diagnoses Not on filedocumented in this encounter Additional Health Concerns Infection Onset Date Last Indicated Resolved Time COVID-19 Rule Out 03/02/2020 03/02/2020 03/03/2020 1:50 PM CDT documented as of this encounter Care Teams Clip Coater Relationship Specialty Start Date End Date Dian Arauz APNP [address] [place] [address] PCP - General NURSE PRACTITIONER 08/29/18 documented as of this encounter
--- OUTSIDE RECORDS SUMMARY | 2024-12-04 09:02 | XMS_ITS | Encounter Summary ---
Author Organization [facility] Facility Care Team Providers Care Returns Clerk Name Role Phone Dian Arauz Primary Care Provider + Christian Oliveros DO Unavailable [phone] Encounter Details Date Type Department Care Team (Latest Contact Info) Description 09/02/2017 Orders Only [facility] ProviderTrent MD [address] [place] [address] Social History Tobacco Use Types Packs/Day Years Used Date Smoking Tobacco: Never Assessed Comments Unknown Sex and Gender Information Value Date Recorded Sex Assigned at Not on file Legal Sex Female 9:13 PM PROCESSING ASSISTANT Gender Identity Not on file Sexual Orientation Not on file documented as of this encounter Plan of Treatment Not on file documented as of this encounter Procedures Procedure Name Priority Date/Time Associated Diagnosis Comments SCAN - LABS 09/02/2017 12:00 AM PROCESSING ASSISTANT documented in this encounter Results * SCAN - LABS (09/02/2017 12:00 AM PROCESSING ASSISTANT) Narrative 09/02/2017 12:00 AM PROCESSING ASSISTANT Ordered by an unspecified provider. Historical Provider Final Res ult documented in this encounter Visit Diagnoses Not on filedocumented in this encounter Care Teams Returns Clerk Relationship Specialty Start Date End Date Dian Arauz PA [address] [place] [address] [phone] PCP - General Nurse Practitioner 11/29/24 Christian Oliveros DO [address] [place] [address] Referring Physician Family Medicine 11/29/24 documented as of this encounter
--- OUTSIDE RECORDS SUMMARY | 2024-12-04 09:02 | XMS_ITS | Encounter Summary ---
Author Organization [facility] Address [address] [place] [address] Care Team Providers Care Hydroelectric Station Operator Chief Name Role Phone Dian Arauz Primary Care Provider [phone] Encounter Details Date Type Department Care Team (Late st Contact Info) Description 05/04/[address] [facility] [address] [facility] Family [facility] Internal Medicine [facility] [address] [place] [address] Dian Arauz APNP [address] [place], [place] [phone] Referral to Dr. Ross for my low back pain. 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 Not on file Not on file documented as of this encounter Plan of Treatment Upcoming Encounters Date Type Department Care Team (Latest Contact Info) Description 12/08/2024 8:40 AM CDT Office Visit [facility] [place] [address] [place] [address] Dian Arauz APNP [address] [place] [address] 01/03/2025 9:40 AM CDT Hospital Encounter [facility] Interventional Pain Management [place] [address] [phone] Roseline Ross MD Three [facility] [address] [place] [address] 01/03/2025 9:40 AM CDT - 01/03/2025 10:00 AM CDT Surgery [facility] Interventional Pain Management [place] [address] [phone] Roseline Ross MD Three [facility] [address] [place] [address] INJECTION FACET JOINT L4-5 02/15/2025 10:20 AM CDT [facility] [address] [facility], [address] [place] [address] Vickie Buck APRN 3 [facility] [address] [place] [address] 04/24/2025 10:00 AM CDT [facility] [address] [facility], [address] [place] [address] Elroy Shaikh MD 3 [place] [address] Scheduled Procedures Name Priority Associated Diagnoses Date/Ti me INJECTION FACET JOINT Lumbar spondylosis 01/03/2025 9:40 AM CDT documented as of this encounter Visit Diagnoses Not on filedocumented in this encounter Additional Health Concerns Assessment Noted Time PHQ-9 Depression Total Score: 0 11/02/19 24 9:01 AM MOTORBOAT OPERATOR documented as of this encounter Care Teams Hydroelectric Station Operator Chief Relationship Specialty Start Date End Date Dian Arauz APNP [address] [place] [address] PCP - General NURSE PRACTITIONER 08/29/18 documented as of this encounter
== END 2024-12-04 08:38 | disposition home or self-care (01) ==
LOC: ANHIMG 08:39
PROVIDERS: PCP Registered Nurse; Visit Provider Registered Nurse
DX: Z12.31 Encounter for screening mammogram for malignant neoplasm of breast (principal); M85.89 Other specified disorders of bone density and structure, multiple sites; R29.890 Loss of height; Z78.0 Asymptomatic menopausal state; Z90.710 Acquired absence of both cervix and uterus
CPT/HCPCS: 77063; 77067; 77080